=== PATIENT | male | born 2000 | race African-American/Black ===

== ENCOUNTER 2020-07-14 13:44 | Inpatient (IN) ==
[2020-07-14] MEDS ORDERED: DIPH/TET/ACEL PERT BOOSTER VACCINE 0.5 ML VIAL IM ONE (13:59)
[2020-07-14] MEDS ORDERED: HYDROmorphone 2 MG/1 ML VIAL IV STA (14:07)
[2020-07-14] MEDS ORDERED: ONDANSETRON 4 MG/2 ML VIAL IV STA (14:07)
[2020-07-14] MEDS ORDERED: GENTAMICIN INJ 160 MG in SODIUM CHLORIDE 0.9% 100 ML IV STA (14:07)
[2020-07-14] MEDS ORDERED: GENTAMICIN 80 MG/2 ML VIAL ONE (14:09)
[2020-07-14] MEDS ORDERED: ONDANSETRON 4 MG/2 ML VIAL ONE ×2 (14:09→17:49)
[2020-07-14] MEDS ORDERED: HYDROmorphone 2 MG/1 ML VIAL ONE (14:10)
[2020-07-14 14:39] LABS: Basophils # 0.1 10*3/uL (0.0-0.2); Basophils % 0.3 % (0.0-0.8); Eosinophils % 0.2 % (0.00-10.9); Hematocrit 44.8 VOL% (42.0-52.0); Hemoglobin 14.8 GM/DL (14.0-18.0); Immature Granulocytes % 1.7 %; Immature Granulocytes Absolute 0.33 #; Lymphocytes # 1.4 10*3/uL (1.4-4.0); Lymphocytes % 6.9 % (21.2-54.2); Mean Corpuscular Volume 91.2 FL (87-102); Mean Platelet Volume 11.3 FL (9.6-12.0); Monocytes % 6.4 % (1.7-12.7); Neutrophils % 84.5 % (38.7-73.9); Platelet Count 202 T/CUMM (130-400); Red Blood Count 4.91 MC/CUMM (3.8-5.5); Red Cell Distribution Width 12.7 % (9.3-17.3); White Blood Count 19.9 T/CUMM (4-12)
[2020-07-14 14:49] LABS: INR 1.1; PT Patient Result 11.6 SECS (9.8-11.9); Partial Thromboplastin Time 26.2 SECS (23.9-33.8)
[2020-07-14 14:57] LABS: Albumin 3.9 G/DL (3.4-5.0); Bilirubin,Total 0.4 MG/DL (0.2-1.0); Calcium 8.9 MG/DL (8.5-10.1); Osmolality,Calculated 279.7 MOS/KG (273-304); Total Protein 7.2 G/DL (6.4-8.3)
[2020-07-14] MEDS ORDERED: MORPHINE 4 MG/1 ML VIAL IV PRN ×2 (17:29→19:03)
[2020-07-14] MEDS ORDERED: diphenhydrAMINE CAP 25 MG CAPSULE PO PRN ×2 (17:29→18:17)
[2020-07-14] MEDS ORDERED: ACETAMINOPHEN 325 MG TABLET PO PRN ×2 (17:29→18:17)
[2020-07-14] MEDS ORDERED: ONDANSETRON 4 MG/2 ML VIAL IV PRN ×3 (17:29→18:18)
[2020-07-14] MEDS ORDERED: PROMETHAZINE 25 MG/1 ML VIAL IM PRN ×2 (17:29→18:17)
[2020-07-14] MEDS ORDERED: MAGNESIUM HYDROXIDE SUSP 30 ML UDCUP PO PRN ×2 (17:29→18:17)
[2020-07-14] MEDS ORDERED: LACTATED RINGERS 1,000 ML IV SCH (17:30)
[2020-07-14] MEDS ORDERED: propofoL 200 MG/20 ML VIAL IV ONE (17:47)
[2020-07-14] MEDS ORDERED: MIDAZOLAM 2 MG/2 ML VIAL ONE (17:48)
[2020-07-14] MEDS ORDERED: LIDOCAINE 2% 5 ML VIAL ONE (17:48)
[2020-07-14] MEDS ORDERED: fentaNYL 100 MCG/2 ML VIAL ONE (17:48)
[2020-07-14] MEDS ORDERED: SEVOFLURANE 1 UNIT/15 MINUTE INH ONE (17:48)
[2020-07-14] MEDS ORDERED: ROCURONIUM 100 MG/10 ML VIAL IV ONE (17:49)
[2020-07-14] MEDS ORDERED: LACTATED RINGERS 1,000 ML IV ONE (17:49)
[2020-07-14] MEDS ORDERED: DEXAMETHASONE 4 MG/1 ML VIAL ONE (17:49)
[2020-07-14] MEDS ORDERED: SUCCINYLCHOLINE 200 MG/10 ML VIAL ONE (17:49)
[2020-07-14] MEDS ORDERED: LABETALOL 20 MG/4 ML SYRINGE IV ONE (18:07)
[2020-07-14] MEDS ORDERED: HYDROmorphone 2 MG/1 ML VIAL IV PRN (18:18)
[2020-07-14] MEDS: MORPHINE 4 MG/1 ML VIAL IV PRN ×2 (20:06→23:23)
[2020-07-14] MEDS: ceFAZolin 1,000 MG in SYRINGE 1 EACH IV SCH (23:23)
[2020-07-15] MEDS: LACTATED RINGERS 1,000 ML IV SCH ×3 (02:00→13:30)
[2020-07-15] MEDS: ceFAZolin 1,000 MG in SYRINGE 1 EACH IV SCH ×2 (06:01→13:48)
[2020-07-15 11:47] VITALS: BP 113/68
== END 2020-07-15 16:20 | disposition home or self-care (01) | DRG 512 ==
LOC: EDBD → N.ED 13:44 → N.EDINP 15:17 → N.3E 18:59
PROVIDERS: ADMIT Orthopaedic Surgery; ATTEND Orthopaedic Surgery